=== PATIENT | male | born 1990 | race Hispanic/Latino ===

== ENCOUNTER 2018-05-31 18:28 | Emergency (ER) | payer OTHER, SELFPAY ==
[2018-05-31] MEDS ORDERED: HYDROCODONE/APAP 5/325 MG TAB ONE (19:36)
--- NOTE | 2018-05-31 20:09 | ER ---
Nurse's Notes [facility] Name: Dung Reyez Age: 28 yrs Sex: Male : 1990 Arrival Date: 05/31/2018 Time: 18:29 Bed 20 Private MD: Out, [facility] Diagnosis: Contusion of left lower leg Presentation: 05/31 18:33 Presenting complaint: Patient states: Left llanes pain for the past 2 days, reports that aj1 today its hurting to bear weight and the swelling is getting worse. Transition of care: patient was not received from another setting of care. Onset of symptoms was May 29, 2018. Risk Assessment: Do you want to hurt yourself or someone else? Patient reports no desire to harm self or others. Initial Sepsis Screen: Does the patient meet any 2 criteria? No. Patient's initial sepsis screen is negative. Does the patient have a suspected source of infection? No. Patient's initial sepsis screen is negative. Care prior to arrival: None. 18:33 Method Of Arrival: Ambulatory [facility] 18:33 Acuity: ALISTAIR 4 aj1 Triage Assessment: 18:35 General: Appears in no apparent distress. uncomfortable, Behavior is calm, cooperative, aj1 appropriate for age. Pain: Complains of pain in left llanes Pain currently is 9 out of 10 on a pain scale. Neuro: Level of Consciousness is awake, alert, obeys commands. Cardiovascular: Patient's skin is warm and dry. Respiratory: Airway is patent Respiratory effort is even, unlabored, Respiratory pattern is regular, symmetrical. Historical: - Allergies: 18:35 No Known Allergies; aj1 - Home Meds: 18:35 None [Active]; aj1 - PMHx: 18:35 None; aj1 - PSHx: 18:35 None; aj1 - Immunization history:: Flu vaccine is not up to date. - Social history:: Smoking status: Patient/guardian denies using tobacco. - Ebola Screening: : Patient denies travel to an Ebola-affected area in the 21 days before illness onset. Screenin:09 Abuse screen: Denies threats or abuse. Denies injuries from another. Nutritional lp1 screening: No deficits noted. Tuberculosis screening: No symptoms or risk factors identified. Fall Risk None identified. Assessment: 19:07 General: Appears in no apparent distress. Behavior is appropriate for age. Pain: lp1 Complains of pain in left medial ankle, left llanes and anterior aspect of left ankle Pain currently is 6 out of 10 on a pain scale. Aggravated by weight bearing. Neuro: Level of Consciousness is awake, alert, obeys commands. Cardiovascular: Patient's skin is warm and dry. Respiratory: Respiratory effort is even, unlabored. GI: No deficits noted. : No deficits noted. EENT: No deficits noted. Derm: Bruising that is bright red, on left medial ankle, left llanes and anterior aspect of left ankle. Musculoskeletal: Range of motion: limited in left ankle. Vital Signs: 18:35 BP 151 / 89; Pulse 78; Resp 18; Temp 97.6; Pulse Ox 99% on R/A; Weight 97.52 kg (R); aj1 Height 5 ft. 11 in. (180.34 cm) (R); Pain 9/10; 18:35 Body Mass Index 29.99 (97.52 kg, 180.34 cm) aj1 ED Course: 18:29 Patient arrived in ED. sb2 18:30 Out, of Town is Private Physician. sb2 18:35 Triage completed. aj1 18:35 Arm band placed on Patient placed in an exam room. aj1 18:37 Lazarus Rangel PA is PHCP. [facility] 18:37 Emeterio Wooten MD is Attending Physician. [facility] 19:00 Naz Kelly, ZHENG is Primary Nurse. lp1 19:09 Patient has correct armband on for positive identification. lp1 19:09 No provider procedures requiring assistance completed. Patient did not have IV access lp1 during this emergency room visit. 19:26 X-ray completed. Portable x-ray completed in exam room. Patient tolerated procedure az well. 19:27 Tib Fib Left XRAY In Process Unspecified. EDMS 20:07 Andrea Rizo MD is Referral Physician. jmm 20:14 Ned wrap to left ankle 1 ned wrap applied to left ankle. CMS intact. Crutches training cc provided. Administered Medications: 19:33 Drug: [place] 5 mg-325 mg 1 tabs Route: PO; lp1 20:17 Follow up: Response: Pain is decreased lp1 Outcome: 20:08 Discharge ordered by . jm 20:18 Discharged to home with crutches, with significant other. lp1 20:18 Condition: good 20:18 Discharge instructions given to patient, significant other, Instructed on discharge instructions, follow up and referral plans. medication usage, crutch walking, Demonstrated understanding of instructions, follow-up care, medications, crutch walking, Prescriptions given X 1. 20:18 Patient left the ED. lp1 Signatures: Dispatcher [employer] EDMS Linn Garcia RN RN aj1 Lazarus Rangel PA PA jmm Christian, Chelsea cc Pena, Laura, RN RN lp1 Nicolle Daniel sb2 Marcela Donaldson
--- NOTE | 2018-05-31 20:09 | EDPHYS ---
Physician Documentation [facility] Name: Dung Reyez Age: 28 yrs Sex: Male : 1990 Arrival Date: 05/31/2018 Time: 18:29 Bed 20 Private MD: Out, [facility] ED Physician Emeterio Wooten HPI: 05/31 18:44 This 28 yrs old Male presents to ER via Ambulatory with complaints of Foot jmm Pain, Leg Swelling. 18:44 The patient presents with an injury, pain, that is acute. Onset: The symptoms/episode jmm began/occurred acutely, 1 week(s) ago. Modifying factors: The symptoms are alleviated by elevating leg, the symptoms are aggravated by weight bearing. Associated signs and symptoms: Pertinent positives: swelling, Pertinent negatives calf tenderness. This is a 28 year old male with no chronic medical conditions that presents to the ED with left lower leg pain beginning after he hit a stair rail. Patient denies other injury. Historical: - Allergies: 18:35 No Known Allergies; aj1 - Home Meds: 18:35 None [Active]; aj1 - PMHx: 18:35 None; aj1 - PSHx: 18:35 None; aj1 - Immunization history:: Flu vaccine is not up to date. - Social history:: Smoking status: Patient/guardian denies using tobacco. - Ebola Screening: : Patient denies travel to an Ebola-affected area in the 21 days before illness onset. ROS: 18:44 Constitutional: Negative for fever, chills, and weight loss, Cardiovascular: Negative jmm for chest pain, palpitations, and edema, Respiratory: Negative for shortness of breath, cough, wheezing, and pleuritic chest pain, Abdomen/GI: Negative for abdominal pain, nausea, vomiting, diarrhea, and constipation. 18:44 Neuro: Negative for headache, weakness, numbness, tingling, and seizure. 18:44 MS/extremity: Positive for injury or acute deformity, pain. 18:44 All other systems are negative. Exam: 18:44 Head/Face: atraumatic. Chest/axilla: Normal chest wall appearance and motion. jmm Cardiovascular: Regular rate and rhythm. No edema appreciated Respiratory: Normal respirations, no respiratory distress appreciated Abdomen/GI: Non distended, soft 18:44 Constitutional: The patient appears in no acute distress, alert, awake. 18:44 Musculoskeletal/extremity: left lower tibial pain on palpation, no obvious deformity noted, compartments are soft, medial and lateral malleolus are non tender to palpation, full dorsalis pedis pulse, NVI. 18:44 Skin: Appearance: Color: normal in color. 18:44 Neuro: Orientation: is normal, Mentation: is normal, Memory: is normal. 18:44 Psych: Behavior/mood is pleasant, cooperative. Vital Signs: 18:35 BP 151 / 89; Pulse 78; Resp 18; Temp 97.6; Pulse Ox 99% on R/A; Weight 97.52 kg (R); aj1 Height 5 ft. 11 in. (180.34 cm) (R); Pain 9/10; 18:35 Body Mass Index 29.99 (97.52 kg, 180.34 cm) aj1 MDM: 18:44 Patient medically screened. [facility] 20:05 Data reviewed:. [facility] 20:05 Data reviewed: vital signs, nurses notes, radiologic studies, plain films. Counseling: yasmin I had a detailed discussion with the patient and/or guardian regarding: the historical points, exam findings, and any diagnostic results supporting the discharge/admit diagnosis, radiology results, the need for outpatient follow up, to return to the emergency department if symptoms worsen or persist or if there are any questions or concerns that arise at home. ED course: Due to ongoing pain, the patient is advised to follow up with orthopedics for further evaluation. Patient understood and agree with the plan of care. . 05/31 18:47 Order name: Tib Fib Left XRAY [facility] 05/31 19:59 Order name: Crutches; Complete Time: 20:03 [facility] Administered Medications: 19:33 Drug: [place] 5 mg-325 mg 1 tabs Route: PO; lp1 20:17 Follow up: Response: Pain is decreased lp1 Disposition: 06/01 07:00 Co-signature as Attending Physician, Emeterio Wooten MD. rn Disposition: 05/31/18 20:08 Discharged to Home. Impression: Contusion of left lower leg. - Condition is Stable. - Discharge Instructions: Ankle Sprain. - Prescriptions for Ibuprofen 800 mg Oral Tablet - take 1 tablet by ORAL route every 8 hours As needed take with food; 30 tablet. - Medication Reconciliation Form, Thank You Letter, Antibiotic Education, Prescription Opioid Use, Work release form form. - Follow up: Andrea Rizo MD; When: 2 - 3 days; Reason: Recheck today's complaints, Continuance of care, Re-evaluation by your physician. Signatures: Dispatcher [employer] Linn You RN RN aj1 Lazarus Rangel PA PA jmm Nieto, Roman, MD MD rn Naz Kelly RN RN lp1 Corrections: (The following items were deleted from the chart) 05/31 20:18 20:08 05/31/2018 20:08 Discharged to Home. Impression: Contusion of left lower leg. lp1 Condition is Stable. Forms are Medication Reconciliation Form, Thank You Letter, Antibiotic Education, Prescription Opioid Use. Follow up: Dr. Andrea Rizo; When: 2 - 3 days; Reason: Recheck today's complaints, Continuance of care, Re-evaluation by your physician. [facility]
--- NOTE | 2018-05-31 20:26 | RAD REPORT ---
EXAM DESCRIPTION: RAD - Tib Fib Left - 05/31/2018 7:27 pm CLINICAL HISTORY: Nontraumatic lower leg pain limiting weight-bearing COMPARISON: August 2016 FINDINGS: No fracture is identified. There is no dislocation or periosteal reaction noted. No acute or suspicious bony finding. No foreign body or other soft tissue abnormality. IMPRESSION: Negative left tibia & fibula examination.
== END 2018-05-31 20:18 | disposition home or self-care (01) ==
LOC: ER 18:28
DX: S80.12XA Contusion of left lower leg, initial encounter (principal); W22.8XXA Striking against or struck by other objects, initial encounter
CPT/HCPCS: 99284